=== PATIENT | male | born 1935 | race Caucasian/White ===

== ENCOUNTER 2017-09-14 11:35 | Emergency (ER) | payer MEDICARE, OTHER ==
[~2017-09-14] VITALS: Ht 182.9 cm; Wt 74.4 kg
[~2017-09-14 11:35] MED LIST: AMBIEN10 MG PO; ASPIR-LOW81 MG PO; CALCIUM + D3 E1 EACH PO; CETIRIZINE HCL10 MG PO; COZAAR50 MG PO; LOPERAMIDE2 M1 PO; MELATONIN1 MG PO; MYTAB GAS80 MG PO; OCUVITE EYE +1 EACH PO; OMEGA 3 1,0001 EACH PO; PRAVACHOL40 MG PO; SYNTHROID125 MCG PO; TRAVATAN Z5 ML OPTH
[2017-09-14] MEDS ORDERED: ZOLPIDEM TARTRA10 MG PO (11:53)
--- OUTSIDE RECORDS SUMMARY | 2017-09-14 12:32 | XMS | Clinical Summary ---
Demographics + + + | Address | [address] [place] [address] | | | [place] [address] | + + + | Home Phone | | + + + | Preferred Language | Unknown | + + + | Marital Status | | + + + | Evangelical Affiliation | PRO | + + + | Race | White | + + + | Ethnic Group | Not or | + + + Author + + + | Author | [facility] | + + + | Organization | [facility] | + + + | Address | Unknown | + + + | Phone | Unavailable | + + + Support + + + + + | Name | Relationship | Address | Phone | + + + + + | , | ECON | [address] | | | [address] | | [place] | | | | | [address] | | + + + + + Care Team Providers + +------+-------+ | Care Card Grader Name | Role | Phone | + +------+-------+ | Mitch lE MD | PP | tel | + +------+-------+ Source Comments TARA is fully live on both [facility] and [facility] InPatient.[facility] & [facility] Allergies + + + + + + | Active Allergy | Reactions | Severity | Noted | Comments | | | | | Date | | + + + + + + | Iodine | | | 02/08/20 | Topical | | | | | 07 | | + + + + + + Current Medications + + +-------+---------+------+------+-------+ | Prescription | Sig. | Disp. | Refills | Star | End | Statu | | | | | | t | Date | s | | | | | | Date | | | + + +-------+---------+------+------+-------+ | LEVOTHYROXINE 100 | 1x daily | | | | | Activ | | MCG TAB | | | | | | e | + + +-------+---------+------+------+-------+ | TRAZODONE 100 MG | 1x daily | | | | | Activ | | TAB | | | | | | e | + + +-------+---------+------+------+-------+ | ZYRTEC 10 MG TAB | 1x daily | | | | | Activ | | | | | | | | e | + + +-------+---------+------+------+-------+ | ASPIRIN 81 MG TAB | 1x daily | | | | | Activ | | | | | | | | e | + + +-------+---------+------+------+-------+ | OCUVITE EXTRA TAB | 1x daily | | | | | Activ | | | | | | | | e | + + +-------+---------+------+------+-------+ | CALCIUM CITRATE + | 2 tabs daily | | | | | Activ | | TAB | | | | | | e | + + +-------+---------+------+------+-------+ | Acetylcysteine | dose once before | 1 | 0 | 10/2 | | Activ | | (MUCOMYST-10) 10 % | scan | | | 2/20 | | e | | (100 mg/mL) | | | | 07 | | | | Misc.(Non-Drug; | | | | | | | | Combo Route) | | | | | | | | Solution | | | | | | | + + +-------+---------+------+------+-------+ | BENICAR OR | None Entered | | | | | Activ | | | | | | | | e | + + +-------+---------+------+------+-------+ Active Problems + + + | Problem | Noted Date | + + + | Renal cell cancer (HCC) | 02/08/2007 | + + + Family History + + +------+ + | Medical History | Relation | Name | Comments | + + +------+ + | Cancer | Brother | | Prostate | + + +------+ + | Cancer | Daughter | | Breast | + + +------+ + | Alcohol/Drug | Father | | | + + +------+ + | Other | Father | | Pulmonary embolism | + + +------+ + | Heart Disease | Mother | | | + + +------+ + | Alcohol/Drug | Sister | | 2 sisters | + + +------+ + + +------+--------+ + | Relation | Name | Status | Comments | + +------+--------+ + | Brother | | | | + +------+--------+ + | Daughter | | | | + +------+--------+ + | Father | | | | + +------+--------+ + | Mother | | | | + +------+--------+ + | Sister | | | | + +------+--------+ + Social History + + + +--------+------+ | Tobacco Use | Types | Packs/Day | Years | Date | | | | | Used | | + + + +--------+------+ | Current Every Day | Cigarettes | 0.5 | 30 | | | Smoker | | | | | + + + +--------+------+ + + | Comments: Quit about 12-15 years ago | + + + + + | Sex Assigned at | Date Recorded | | | | + + + | Not on file | | + + + Last Filed Vital Signs + + + + | Vital Sign | Reading | Time Taken | + + + + | Blood Pressure | 92/59 | 10/21/2008 4:23 PM PST | + + + + | Pulse | 72 | 10/21/2008 4:23 PM PST | + + + + | Temperature | 36.3 C (97.4 F) | 03/20/2007 9:33 AM PDT | + + + + | Respiratory Rate | 16 | 03/01/2007 9:52 AM PDT | + + + + | Oxygen Saturation | - | - | + + + + | Inhaled Oxygen | - | - | | Concentration | | | + + + + | Weight | 79.8 kg (176 lb) | 10/21/2008 4:23 PM PST | + + + + | Height | 181 cm (5' 11.25") | 03/20/2007 9:33 AM PDT | + + + + | Body Mass Index | 24.38 | 10/21/2008 4:23 PM PST | + + + + Plan of Treatment + + + + + | Health Maintenance | Due Date | Last Done | Comments | + + + + + | INFLUENZA VACCINE | | | | | (FLU SHOT) | 7 | | | + + + + + Results Not on filefrom Last 3 Months
--- OUTSIDE RECORDS SUMMARY | 2017-09-14 12:32 | XMS | Clinical Summary ---
Demographics + + + | Address | [address] [place] [address] | | | [place] [address] | + + + | Home Phone | | + + + | Preferred Language | Unknown | + + + | Marital Status | | + + + | Amish Affiliation | PRO | + + + | Race | White | + + + | Ethnic Group | Not or | + + + Author + + + | Author | [facility] | + + + | Organization | [facility] | + + + | Address | Unknown | + + + | Phone | Unavailable | + + + Support + + + + + | Name | Relationship | Address | Phone | + + + + + | , | ECON | [address] | | | [address] | | [place] | | | | | [phone] | | + + + + + Care Team Providers + +------+-------+ | Care Roller Inspector Name | Role | Phone | + +------+-------+ | Mitch El MD | PP | tel | + +------+-------+ Source Comments TARA is fully live on both [facility] and [facility] InPatient.[facility] & [facility] Allergies + + + + + + [...]
== END 2017-09-14 15:40 | disposition home or self-care (01) ==
LOC: ED 11:35
DX: T14.8XXA Other injury of unspecified body region, initial encounter (principal); R53.81 Other malaise; I10 Essential (primary) hypertension; E78.00 Pure hypercholesterolemia, unspecified; Z85.528 Personal history of other malignant neoplasm of kidney; Z85.46 Personal history of malignant neoplasm of prostate; Z87.891 Personal history of nicotine dependence; Z91.013 Allergy to seafood; Z91.048 Other nonmedicinal substance allergy status; Z79.899 Other long term (current) drug therapy; Z98.890 Other specified postprocedural states; W18.30XA Fall on same level, unspecified, initial encounter
CPT/HCPCS: 71020; 80053; 81001; 84484; 85025; 96360; 96361; 99284; J7040

== ENCOUNTER 2017-09-28 11:05 | Emergency (ER) | payer MEDICARE, OTHER ==
[~2017-09-28] VITALS: Ht 182.9 cm; Wt 75.3 kg
[~2017-09-28 11:05] MED LIST changes: +ZOLPIDEM TARTRA10 MG PO
[2017-09-28] MEDS ORDERED: NORCO 5-325 TA1 EACH PO (12:32)
== END 2017-09-28 12:42 | disposition home or self-care (01) ==
LOC: ED 11:05
DX: S22.41XA Multiple fractures of ribs, right side, initial encounter for closed fracture (principal); I10 Essential (primary) hypertension; E78.00 Pure hypercholesterolemia, unspecified; Z87.891 Personal history of nicotine dependence; Z90.89 Acquired absence of other organs; Z91.013 Allergy to seafood; Z91.09 Other allergy status, other than to drugs and biological substances; Z79.899 Other long term (current) drug therapy; X58.XXXA Exposure to other specified factors, initial encounter
CPT/HCPCS: 71101; 99283

== ENCOUNTER 2017-11-12 14:19 | Emergency (ER) | payer MEDICARE, OTHER ==
[~2017-11-12] VITALS: Ht 182.9 cm; Wt 69.0 kg
--- OUTSIDE RECORDS SUMMARY | ~2017-11-12 | XMS | Clinical Summary ---
Demographics + + + | Address | [address] [place] [address] | | | [place] [address] | + + + | Home Phone | | + + + | Preferred Language | Unknown | + + + | Marital Status | | + + + | Worship Affiliation | PRO | + + + | Race | White | + + + | Ethnic Group | Not or | + + + Author + + + | Author | [facility] | + + + | Organization | [facility] | + + + | Address | Unknown | + + + | Phone | Unavailable | + + + Support +------+ + + + +-------+ | Name | Relationship | Address | Phone | +------+ + + + +-------+ ECON | [address] | | [place] | [phone] | +------+ + + + +-------+ Care Team Providers + +------+-------+ | Care Product Introduction Manager Name | Role | Phone | + +------+-------+ | Mitch El MD | PP | tel | + +------+-------+ Source Comments TARA is fully live on both [facility] Ambulatory and [facility] InPatient.[facility] Allergies + + + + + + [...]
--- OUTSIDE RECORDS SUMMARY | ~2017-11-12 | XMS | Clinical Summary ---
Demographics + + + | Address | [address] [place] [address] | | | [place] [address] | + + + | Home Phone | | + + + | Preferred Language | Unknown | + + + | Marital Status | | + + + | Advent Affiliation | PRO | + + + [...] [address] | | [place] | [address] | +------+ + + + +-------+ Care Team Providers + +------+-------+ | Care White Lead Filterer Name | Role | Phone | + +------+-------+ | Mitch El MD | PP | tel | + +------+-------+ Source Comments TARA is fully live on both [facility] Ambulatory and [facility] InPatient.[facility] & [facility] Allergies + + + + + [...]
[~2017-11-12 14:19] MED LIST changes: +COZAAR25 MG PO; -COZAAR50 MG PO; +NORCO 5-325 TA1 EACH PO
[2017-11-12] MEDS ORDERED: COZAAR25 MG PO (20:07)
[2017-12-15] MEDS ORDERED: SYMBICORT 80-10.2 GM INH (10:41)
[2017-12-22] MEDS ORDERED: VENTOLIN HFA18 GM INH (11:32)
== END 2017-11-12 20:15 | disposition home or self-care (01) ==
LOC: ED 14:19
DX: R62.7 Adult failure to thrive (principal); F03.90 Unspecified dementia, unspecified severity, without behavioral disturbance, psychotic disturbance, mood disturbance, and anxiety; C64.9 Malignant neoplasm of unspecified kidney, except renal pelvis; I10 Essential (primary) hypertension; E78.00 Pure hypercholesterolemia, unspecified; Z87.891 Personal history of nicotine dependence; Z90.89 Acquired absence of other organs; Z91.013 Allergy to seafood; Z91.09 Other allergy status, other than to drugs and biological substances; Z79.899 Other long term (current) drug therapy
CPT/HCPCS: 71010; 73110; 80053; 81001; 85025; 87502; 96360; 96361; 99283; J7040